=== PATIENT | male | born 1975 | race Caucasian/White ===

== ENCOUNTER 2018-11-02 00:57 | Outpatient (CLI) | payer OTHER, SELFPAY ==
--- NOTE | 2018-11-02 10:03 | DI.RAD_ITS ---
SYMPTOMS/DIAGNOSIS: CHEST PAIN, PAIN ON BREATHING, R07.1 PA AND LATERAL CHEST: Comparison 06/17/10. The heart is normal in size. The lungs are clear. The mediastinal structures and pleura appear intact. CONCLUSION: Normal chest.
== END 2018-11-02 01:17 ==
PROVIDERS: PCP Internal Medicine; Visit Provider Internal Medicine
DX: R07.1 Chest pain on breathing (principal)
CPT/HCPCS: 71046

== ENCOUNTER 2019-02-04 17:29 | Emergency (ER) | payer OTHER, SELFPAY ==
[2019-02-04 17:32] VITALS: BP 125/66; PULSE 84; RESP 18; TEMP 36.6; O2SAT 96
--- NOTE | 2019-02-04 17:55 | ED.GENADUL_ITS ---
Discharge Plan Disposition Patient Disposition: HOME Condition: Fair Discharge Details Chief Complaint: Sorethroat Clinical Impression: Acute pharyngitis Primary Care Provider: Susie Carnes ED Provider: Traci Lui Home Meds and New Rx's Prescriptions: New lidocaine HCl [Lidocaine Viscous] 2 % solution 15 ml MM BID-QID PRN (Reason: mouth pain) Qty: 100 RF: 0 penicillin V potassium 500 mg tablet 500 mg PO BID 10 Days Qty: 20 RF: 0 Continued naproxen 500 mg tablet 500 mg PO BID Qty: 60 RF: 2 cyclobenzaprine 10 mg tablet 10 mg PO HS Qty: 30 RF: 1 Discharge Instructions Instructions: Pharyngitis (ED) Additional Instructions: Encourage hydration. Tylenol and ibuprofen as needed for discomfort. You may use the viscous lidocaine as prescribed to help with your sore throat. Gargle and spit this out. Your rapid strep testing was negative today. Hold off on taking antibiotics unless her contacted by the department to begin this. If you develop fever/chills, inability stay hydrated, increased swelling, inability to open her mouth, rash or other new/worsening symptoms please seek care urgently once again Referrals: Susie Carnes MD [Primary Care Provider] - Medical Decision Making Patient is a 43-year-old male presenting today with chief complaint of 2 to 3 days of sore throat. States he has had intermittent fevers, has not measured this objectively. Denies any rash of shortness of breath, cough. States that while he has been able to tolerate fluids well, he has had diminished food intake secondary to increased pain with eating. Patient is concerned that he may have been exposed to Streptococcus pharyngitis. Denies any GI upset. On exam, he appears nontoxic. He does have bilateral erythema and white exudate. Findings are consistent with strep throat. He does have anterior lymphadenopathy. Denies any belly pain. No recent travel. No recent headaches. He and I discussed the usage of antibiotics the risks associated with the overuse and improper use. Rapid strep testing was negative. Discussed these findings with the patient. He is preparing for a trip in 2 days. Advised that we will call him with the pending lab results if they are positive. As he is about to leave the area, will send him home with a prescription for antibiotics to begin if instructed to do so from the emergency department. He will also be prescribed viscous lidocaine to help with symptomatic management. He will swish and spit this. Encourage hydration with water. Advised Tylenol and ibuprofen as needed for discomfort. Discussed [id number] home remedies that may be of benefit. He was given strict return precautions. Advise follow-up with primary care in 1 week if not improving. All his questions and concerns were addressed and he is in agreement this plan peer HPI General Mode of arrival: ambulatory . Date/Time Provider Initiated Documentation: 02/04/19 17:53 . Limitations to Documentation: no limitations . Information obtained by: patient and RN notes reviewed . History of Present Illness 43 year old M presents to the emergency department with the chief complaint of sore throat, described as moderate, with intensity rated at 4. Quality is described as burning, and is localized to the mouth. Patient reports no radiation. Patient started experiencing this day(s) (2) and it has been constant. No relieving factors improve symptom(s), Eating worsens symptoms . Patient notes fever/chills and loss of appetite (secondary to pain with eating); denies chest pain, cough, diaphoresis, nausea/vomiting, rash and shortness of breath. Patient did receive the following treatments prior to arrival, other (took dose of amoxicillin left over in cabinet) Related Data Home Medications Medication Instructions Recorded Confirmed cyclobenzaprine 10 mg tablet 10 mg PO HS #30 tab 11/01/18 02/04/19 naproxen 500 mg tablet 500 mg PO BID #60 tab 11/01/18 02/04/19 lidocaine HCl [Lidocaine Viscous] 15 ml MM BID-QID PRN #100 ml 02/04/19 penicillin V potassium 500 mg PO BID 10 Days #20 tab 02/04/19 Previous Rx's Medication Instructions Recorded cyclobenzaprine 10 mg tablet 10 mg PO HS #30 tab 11/01/18 naproxen 500 mg tablet 500 mg PO BID #60 tab 11/01/18 lidocaine HCl [Lidocaine Viscous] 15 ml MM BID-QID PRN #100 ml 02/04/19 penicillin V potassium 500 mg PO BID 10 Days #20 tab 02/04/19 Allergies Allergy/AdvReac Type Severity Reaction Status Date / Time No Known Allergies Allergy Unverified 02/04/19 17:35 General Stated Complaint: Sorethroat ANUPAMA: 4 Review of Systems Constitutional Reports as per HPI, Denies chills, Reports fatigue, Reports fever(s), Denies headache(s) and Reports poor appetite Eyes Reports as per HPI, Denies eye discharge and Denies irritation ENT Reports as per HPI, Denies ear discharge, Denies otalgia, Denies headache(s), Denies hoarseness, Denies lip swelling, Denies nasal congestion, Denies sinus pain, Denies sinus pressure, Reports sore throat, Denies throat swelling and Denies tongue swelling Cardiovascular Reports as per HPI, Denies chest pain and Denies dyspnea Respiratory Reports as per HPI and Denies dyspnea Gastrointestinal Reports as per HPI, Denies abdominal pain, Denies change in bowel habits, Denies nausea and Denies vomiting Integumentary/Breasts Reports as per HPI and Denies rash Neurologic Reports as per HPI and Denies headache(s) Endocrine Reports fatigue Allergic/Immunologic Denies lip swelling, Denies throat swelling and Denies tongue swelling PFSH Family History Mother No problems noted. Father Heart disease Brother No problems noted. Brother No problems noted. Grandfather No problems noted. Grandfather No problems noted. Grandmother Hyperlipidemia Grandmother Personal history of malignant neoplasm Stroke Social History Smoking/Tobacco Use Status: Current every day Alcohol Intake: current Alcohol Intake frequency: a few times a week Drug use: Occasionally Substance use type: marijuana Do you feel safe at home: Yes Do you feel safe in your relationship?: Yes Exam Const General: cooperative, healthy appearing, comfortable, no acute distress, well developed and well groomed Nutritional Appearance: average body habitus and well nourished Orientation: alert and awake [facility] Head: normal to inspection, normocephalic and atraumatic Ears: hearing grossly normal bilaterally, external ears normal and TM's normal bilaterally General nose exam: external nose normal and nares normal Face and sinus: normal facial exam, sinuses nontender and face symmetric Mouth: oral mucosae normal, lip normal, tongue normal, oropharynx normal, moist mucous membranes, no muffled voice, no trismus and No restricted motion Throat: uvula midline, abnormal tonsil bilaterally erythema, exudates and hypertrophy 1+ and no peritonsillar masses Eyes General: appearance normal, both eyes and all related structures Neck Neck: normal visual inspection, full ROM, no lymphadenopathy and no meningeal signs Resp Effort & Inspection: normal respiratory effort, able to speak in complete sentences and no respiratory distress Auscultation: clear to auscultation bilaterally, no rales, no rhonchi and no wheezes Cardio Rate: regular rate Rhythm: regular rhythm Heart Sounds: S1 normal and S2 normal Skin General skin exam: no rashes or lesions noted Neuro General: alert and awake Cognition: normal cognition Speech: speech normal Gait: normal gait Psych Appearance: grossly normal and well kempt Mental Status: mental status grossly normal Speech and Movement: speech and movement normal Course Vital Signs Temperature 36.6 C 02/04/19 17:32 Pulse 84 02/04/19 17:32 Respiratory Rate 18 02/04/19 17:32 Blood Pressure 125/66 02/04/19 17:32 Pulse Oximetry 96 02/04/19 17:32 Temperature 36.6 C 02/04/19 17:32 Temperature Source Skin 02/04/19 17:32 Pulse 84 02/04/19 17:32 Respiratory Rate 18 02/04/19 17:32 Respiratory Effort Non-Labored 02/04/19 17:36 Blood Pressure 125/66 02/04/19 17:32 Blood Pressure Position Sitting 02/04/19 17:32 Pulse Oximetry 96 02/04/19 17:32 Oxygen Delivery Method Room Air 02/04/19 17:32 Oxygen Flow Rate 0 02/04/19 17:32 Pain Level 4 02/04/19 17:32 Lab/Test Results Lab/Test Results: 02/04/19 17:35 Tonsil - Not Specified Streptococcus Screen ([facility]) - Pending POC Strep Test-[facility](Rapid) Start: 02/04/19 17:42 Freq: Status: Active Protocol: Document 02/04/19 17:44 AB (Rec: 02/04/19 17:44 AB [id number]) Strep test-[facility](Rapid)-POC POC-Strep test-[facility] (Rapid) Negative POC-Strep test-[facility] (Rapid) Negative
== END 2019-02-04 18:25 | disposition home or self-care (01) ==
PROVIDERS: Emergency Provider Physician Assistant; PCP Internal Medicine
DX: J02.9 Acute pharyngitis, unspecified (principal)
CPT/HCPCS: 87880; 99283; 87081

== ENCOUNTER 2020-03-28 18:44 | Emergency (ER) | payer OTHER, SELFPAY ==
[2020-03-28] VITALS (18 sets, daily range): BP systolic 110–169; BP diastolic 72–88; PULSE 52–109; RESP 9–25; TEMP 36.7; O2SAT 95–99
--- NOTE | 2020-03-28 18:45 | RT.EKG_ITS ---
APPROVED REPORT Exam: Resting ECG Patient Location: E HR:107 bpm ECG Measurements Heart Rate 107 AXIS IL 141 P 80 QRSd 133 QRS 73 QT 328 T 81 QTc 437 Conclusion EKG 18: 50 Rate 107, intervals normal aside for QRS prolongation of 133 likely secondary to right bundle branch block. Otherwise sinus tachycardia. No evidence of STEMI. No clear evidence of Brugada syndrome, d elta wave, epsilon wave.
--- NOTE | 2020-03-28 19:00 | DI.CT_ITS ---
EXAM: CT THORAX CTA CLINICAL HISTORY: left CP, with arm tingling, r/o dissection/PE. TECHNIQUE: Imaging Protocol: Axial CT angiography was performed with multi-slice acquisition and mu lti-planar and/or 3D reconstructions. CONTRAST MATERIAL: Intravenous: Omnipaque 350 Contrast volume:100 mL COMPARISON: CR XR CHEST 2V PA LATERAL from 11/02/2018 FINDINGS: Pulmonary Arteries: There is inadequate opacification of the pulmonary arteries for evaluation of an embolus. Tracheobronchial tree: Patent where visualized. Mediastinum and Becky: No dominant adenopathy or fluid collection. Small hiatal hernia. Pulmonary parenchyma: No consolidation or dominant measurable mass. Mild pulmonary emphysema. Pleura: No effusion or pneumothorax. Heart: The heart is not dilated. No coronary artery calcifications are seen. No pericardial effusion. Aorta: Thoracic aorta non-dilated. No evidence of dissection. Upper abdomen: Unremarkable. Bones: Mild degenerative changes are present. There is a mild right convex scoliosis of the thoracic spine. IMPRESSION: 1. Suboptimal examination for pulmonary embolism evaluation due to poor opacification of the pulmonar y arteries. 2. No evidence of an aortic dissection or aneurysm. 3. No acute pulmonary process. RADIATION DOSE DELIVERED: 393.94mGy.cm Total DLP DATA REPOSITORY: All CT scans at this facility are submitted to the National Radiology Data Registry (NRDR) Dose Index Registry (DIR) with the [employer] (ACR). RADIATION OPTIMIZATION: All CT scans at this facility use at least one of these dose optimization te chniques: automated exposure control; mA and/or kV adjustment per patient size (includes targeted exa ms where dose is matched to clinical indication); or iterative reconstruction.
[2020-03-28 19:17] LABS: Abs Immature Grans 0.01 10^3/uL (0.0-0.06); Absolute Basophil Count 0.02 10^3/uL (0.0-0.2); Absolute Eosinophil Count 0.16 10^3/uL (0.0-0.7); Absolute Lymphocyte Count 2.13 10^3/uL (1.2-3.4); Absolute Monocyte Count 0.38 10^3/uL (0.1-0.8); Absolute Neutrophil Count 3.65 10^3/uL (1.2-6.7); Basophils % 0.3; Eosinophils % 2.5; HCT 42.1 % (40.0-50.0); HGB 14.3 g/dL (13.5-17.5); Immature Grans % 0.2; Lymphocytes % 33.5; MCH 32.1 pg (27.0-33.0); MCV 94.4 fL (80-95); MPV 10.1 fL (8.0-11.0); Neutrophils % 57.5; Nucleated RBC 0 %; Platelet Count 158 10^3/uL (130-400); RBC 4.46 10^6/uL (4.36-5.78); RDW-SD 41.9 fL; WBC 6.35 10^3/uL (4.4-10.8)
--- NOTE | 2020-03-28 19:18 | W.ED.GENAD ---
Discharge Plan Disposition Patient Disposition: HOME Condition: Stable Discharge Details Chief Complaint: Chest Pain Clinical Impression: Chest pain, Hypokalemia Primary Care Provider: Loida Calle ED Provider: Mono Kwok Home Meds and New Rx's Prescriptions: Continued cyclobenzaprine 10 mg tablet 10 mg PO HS PRNRF: 0 naproxen 500 mg tablet 500 mg PO BID PRNRF: 0 Discharge Instructions Instructions: Chest Pain (ED), Hypokalemia (ED) Additional Instructions: your lab work and cat scan did not show a cause for your pain follow up with your primary care provider and discuss having a stress test if you feel more ill, have worsening pain or difficulty breathing return to the emergency department Medical Decision Making <Herman England, - Last Filed: 03/28/20 19:30> 44-year-old male with no significant past medical history presents today for evaluation of chest pain. Patient states that over the last few weeks he has had intermittent chest pain which she describes as a left chest tightness sensation. He will come and go, it is unrelated to exertion or movement. It goes away on its own with time. Sometimes it gets better without intervention, sometimes it gets better with rest. Patient states tonight though that it came back just while sitting, it was notably worse than before. He describes it as a heavy tight weight on his left chest feeling like someone is pushing with significant force in an inward direction. He also admits to palpitations. He denies any significant pleuritic chest pain, he does admit to radiation of the pain to his left neck and tingling in his hand and arm. He denies any tearing or ripping sensation. He denies history of cardiac disease. He did smoke in the past but quit over a year ago. His father did have cardiac disease but of a motor vehicle accident in his 50s. Patient denies any IV or illicit drug use. He denies any syncope. No other complaints at this time. No other modifying factors. Physical exam demonstrates no significant abnormalities, radial pulses equal, no reproducible chest pain. The patient is mildly tachycardic. EKG demonstrates evidence of a right bundle branch block, does not appear to resemble Brugada syndrome, no delta wave. This is atypical. Differential is broad but includes electrolyte abnormality, PE dissection. We will monitor closely, get radiographic imaging of the chest to rule these out, troponin, rehydrate and reassess. Patient will be signed out to my colleague Dr. Kwok for follow-up on labs and imaging. EKG 18: 50 Rate 107, intervals normal aside for QRS prolongation of 133 likely secondary to right bundle branch block. Otherwise sinus tachycardia. No evidence of STEMI. No clear evidence of Brugada syndrome, delta wave, epsilon wave. <Mono Kwok MD - Last Filed: 03/28/20 22:42> pt's cta shows no acute pathology, hd stable and has no complaints has reproducible pain in left upper chest suspect he has chest wall pain but will monitor and obtain delta troponin and ecg. His heart score is 2 so if negative troponin and unchanged ecg feel he could be d/c'd with f/u with pcp pt asymptomatic and stable no complaints. Second troponin negative, will have him f/u for repeat K and possible stress test. Return precautions given Imaging Data Radiologic Study: Attestation: I personally reviewed and interpreted this imaging study as follows: Imaging: CT Scan Radiologist's impression: IMPRESSION: 1. No evidence for aortic aneurysm or dissection. 2. No gross evidence for pulmonary embolism however the pulmonary arteries are not optimally opacified. 3. The lungs are clear ECG Data Attestation: I personally reviewed and interpreted this ECG (s) as follows: Prior ECG tracings: available for review Interpretation: sinus rhythm, rate of 53, pr 171 HPI <Herman England DO - Last Filed: 03/28/20 19:30> General Date/Time Provider Initiated Documentation: 03/28/20 18:51. HPI Narrative: 44-year-old male with no significant past medical history presents today for evaluation of chest pain. Patient states that over the last few weeks he has had intermittent chest pain which she describes as a left chest tightness sensation. He will come and go, it is unrelated to exertion or movement. It goes away on its own with time. Sometimes it gets better without intervention, sometimes it gets better with rest. Patient states tonight though that it came back just while sitting, it was notably worse than before. He describes it as a heavy tight weight on his left chest feeling like someone is pushing with significant force in an inward direction. He also admits to palpitations. He denies any significant pleuritic chest pain, he does admit to radiation of the pain to his left neck and tingling in his hand and arm. He denies any tearing or ripping sensation. He denies history of cardiac disease. He did smoke in the past but quit over a year ago. His father did have cardiac disease but of a motor vehicle accident in his 50s. Patient denies any IV or illicit drug use. He denies any syncope. No other complaints at this time. No other modifying factors. Related Data Home Medications Medication Instructions Recorded Confirmed cyclobenzaprine 10 mg tablet 10 mg PO HS PRN tab 02/28/19 03/28/20 naproxen 500 mg tablet 500 mg PO BID PRN tab 02/28/19 03/28/20 Allergies Allergy/AdvReac Type Severity Reaction Status Date / Time No Known Allergies Allergy Unverified 03/28/20 18:56 General Stated Complaint: Chest Pain ANUPAMA: 2 Review of Systems <Herman England DO - Last Filed: 03/28/20 19:30> All systems reviewed & are unremarkable except as noted in HPI and below PFSH <Herman England DO - Last Filed: 03/28/20 19:30> Family History Mother No problems noted. Father , car accident at age 54. Heart disease Brother No problems noted. Brother No problems noted. Grandfather No problems noted. Grandfather No problems noted. Grandmother Hyperlipidemia Grandmother Personal history of malignant neoplasm ?COLON Stroke Social History Smoking/Tobacco Use Status: Former Tobacco Use Alcohol Intake: current Alcohol Intake frequency: a few times a week Drug use: Occasionally Substance use type: marijuana Do you feel safe at home: Yes Do you feel safe in your relationship?: Yes Exam <Herman England DO - Last Filed: 03/28/20 19:30> Narrative Exam Narrative: 1.Const: Well-nourished, Well-developed, appearing stated age 2.Eyes: PERRL, no conjunctival injection, and symmetrical lids. 3.ENT: Atraumatic external nose and ears. Moist MM. Neck: Symmetric, trachea midline, No thyromegaly. 4.CVS: +S1/S2, No murmurs or gallops. Peripheral pulses 2+ and equal in all extremities. Brisk capillary refill in all extremities. Radial pulses +2 bilaterally. No reproducible chest pain on exam. 5.RESP: Unlabored respiratory effort. Clear to auscultation bilaterally. No wheezes rales or rhonchi 6.GI: Soft, Nontender/Nondistended, No hepatosplenomegaly. No guarding or rebound. 7.MSK: Normocephalic/Atraumatic, Extremities w/o deformity or ttp No cyanosis or clubbing, Normal movement of all extremities 8.Skin: Warm, Dry. No rashes or lesions. 9.Neuro: optical laboratory technician II-XII grossly intact. Sensation grossly intact, no focal neurologic deficits. 10.Psych: (AAO) x3. Appropriate mood and affect Course <Herman England DO - Last Filed: 03/28/20 19:30> Vital Signs Vital signs: Vital Signs Temperature 36.7 C 03/28/20 18:47 Pulse 109 H 03/28/20 18:47 Respiratory Rate 22 03/28/20 18:47 Blood Pressure 169/88 H 03/28/20 18:47 Pulse Oximetry 99 03/28/20 18:47 Temperature 36.7 C 03/28/20 18:47 Temperature Source Skin 03/28/20 18:47 Pulse 109 H 03/28/20 18:47 Respiratory Rate 22 03/28/20 18:47 Respiratory Effort 03/28/20 18:53 Blood Pressure 169/88 H 03/28/20 18:47 Blood Pressure Position Supine 03/28/20 18:47 Pulse Oximetry 99 03/28/20 18:47 Oxygen Delivery Method Room Air 03/28/20 18:47 Oxygen Flow Rate 0 03/28/20 18:47 Pain Level 4 03/28/20 18:47 Sign Out <Herman England DO - Last Filed: 03/28/20 19:30> Sign Out Data: Sign Out Comment: Palpitations, chest pain, pending imaging. Notable hypokalemia being corrected Last updated by Herman England DO at 03/28/20 19:40
[2020-03-28] MEDS: Normal Saline 1,000 ML 1000 ML IV (19:24)
[2020-03-28 19:32] LABS: PTT Activated 24.1 sec (21.0-31.4); Prothrombin Time 10.3 sec (9.3-11.0)
[2020-03-28 19:36] LABS: ALT 29 U/L (16-63); AST 24 U/L (15-37); Albumin 3.7 g/dL (3.4-5.0); Alkaline Phosphatase 70 U/L (46-116); Anion Gap 10.1 mmol/L (3-11); BUN 13 mg/dL (7-18); Bilirubin, Total 0.5 mg/dL (0.2-1.0); CO2 26.9 mmol/L (21.0-32.0); Calcium 8.5 mg/dL (8.5-10.1); Chloride 96 mmol/L (98-107); Estimated GFR 59.43 (mL/min/1.73m2); Glucose 357 mg/dL (74-106); Sodium 133 mmol/L (136-145)
[2020-03-28 19:37] LABS: Potassium 2.8 mmol/L (3.5-5.1); Troponin I < 0.05 ng/mL (<0.06)
[2020-03-28] MEDS: Normal Saline Flush 10 ML SYR IVP (19:52)
[2020-03-28] MEDS: Normal Saline - Diluent 50 ML VIAL IV (19:52)
[2020-03-28] MEDS: Omnipaque 350 MG/ML 100 ML BTL IJ (19:53)
--- NOTE | 2020-03-28 20:14 | DI.VRAD_ITS ---
PROCEDURE INFORMATION: Exam: CT Angiography Chest With Contrast Exam date and time: 03/28/2020 7:58 PM Age: 44 years old Clinical indication: Left-sided chest pain; Patient HX: Left chest pain with left arm tingling, R/O dissection/pe TECHNIQUE: Imaging protocol: Computed tomographic angiography of the chest with intravenous contrast. 3D rendering (Not supervised by radiologist): MIP and/or 3D reconstructed images were created by the technologist. Radiation optimization: All CT scans at this facility use at least one of these dose optimization techniques: automated exposure control; mA and/or kV adjustment per patient size (includes targeted exams where dose is matched to clinical indication); or iterative reconstruction. Contrast material: [id number]; Contrast volume: 100 ml; Contrast route: INTRAVENOUS (IV); COMPARISON: CR XR CHEST 2V PA LATERAL 11/02/2018 10:14 AM FINDINGS: There are degenerative changes of the spine. There is mild scoliosis convex to the right. The lungs are clear of infiltrate. There is no pleural effusion. There is no pneumothorax. There are no suspicious pulmonary nodules. There is some minimal scarring within the lung apices. Small emphysematous blebs are seen within the lung apices. The central airways are normal in caliber. The thyroid gland is unremarkable. There is no axillary adenopathy. There is no mediastinal adenopathy. There is no hilar adenopathy. There is poor opacification of the pulmonary arteries. No gross evidence for pulmonary embolism is seen. The aorta is normal in caliber with no evidence for aneurysm or dissection. The heart is normal in size. There is a small hiatal hernia. IMPRESSION: 1. No evidence for aortic aneurysm or dissection. 2. No gross evidence for pulmonary embolism however the pulmonary arteries are not optimally opacified. 3. The lungs are clear. Dictated and Authenticated by: Quincy Sommers MD. Ordering:LANA Sutton MD
[2020-03-28] MEDS: POTASSIUM CHLORIDE 20 MEQ/100 ML BAG 50 MEQ IVPB (20:18)
[2020-03-28] MEDS: Potassium Chloride 20 MEQ TABCR 40 MEQ PO (20:19)
[2020-03-28 21:27] LABS: Magnesium 1.7 mg/dL (1.8-2.4)
--- NOTE | 2020-03-28 22:00 | RT.EKG_ITS ---
APPROVED REPORT Exam: Resting ECG Patient Location: E HR:53 bpm ECG Measurements Heart Rate 53 AXIS FL 171 P 51 QRSd 120 QRS 6 QT 397 T 32 QTc 374 Conclusion Sinus bradycardia...rate< 60 Nonspecific intraventricular conduction delay...QRSd >115mS, not LBBB/RBBB ST elev, probable normal early repol pattern...ST elevation, age<55
[2020-03-28 22:28] LABS: Troponin I < 0.05 ng/mL (<0.06)
--- NOTE | 2020-03-28 22:40 | NUR.NOTE ---
Addendum entered by Kaitlynn Foster 03/28/20 23:48: referal faxed to pcp for follow up /chest pain 03/28/20 Original Note: Nursing Note:fabien gonzalez pcp for follow up chest pain 03/28/20
== END 2020-03-28 22:45 | disposition home or self-care (01) ==
PROVIDERS: Student in an Organized Health Care Education/Training Program; Emergency Provider Emergency Medicine; PCP Nurse Practitioner
DX: E87.6 Hypokalemia (principal); R07.81 Pleurodynia; R00.2 Palpitations
CPT/HCPCS: 71275; 80053; 93005; 96361; 96365; 96366; 99285; 83735; 84484; 85025; 85610; 85730; 93010; J3480; J3490

== ENCOUNTER 2020-04-05 22:04 | Outpatient (REF) | payer OTHER, SELFPAY ==
[2020-04-05 21:32] LABS: Calculated LDL 113 mg/dL (<100); Cholesterol 203 mg/dL (<200); HDL Cholesterol 71 mg/dL (40-60); Potassium 4.1 mmol/L (3.5-5.1); Triglyceride 97 mg/dL (<150)
[2020-04-05 21:44] LABS: Hemoglobin A1C 5.1 % (<5.7)
== END 2020-04-05 22:24 ==
LOC: LBN 22:04
PROVIDERS: PCP Nurse Practitioner; Visit Provider Nurse Practitioner
DX: E87.6 Hypokalemia (principal); R07.9 Chest pain, unspecified; Z13.1 Encounter for screening for diabetes mellitus
CPT/HCPCS: 80061; 83036; 84132

== ENCOUNTER 2020-04-17 00:10 | Outpatient (CLI) | payer OTHER, SELFPAY ==
--- NOTE | 2020-04-17 09:00 | ETT_ITS ---
APPROVED REPORT Exam: Exercise Treadmill Patient Location: Out-Patient Room/Bed: Stress Nurse: Crista Noe RN BMI: 21.18 Baseline Rhythm: Sinus Rhythm Indications: Patient presented to the ED on 04/05/2020 with chest pain; potassium level at this time w as 2.8. Patient reports midsternal chest pressure, ???squeezing like in a vice??? and left shoulder p ain when raising arm. He has not had another episode since his ED visit. Medical History Medical History: No medical history per patient. Cardiac Medications: No cardiac medications per patient. Allergies: No known drug allergies Cardiac Risk Factors: FHX of CAD Previous Cardiac Procedures: None Pretest Chest Pain Characteristics: None per patient report Exercise History: Physically active Physical Disabilities: None Lung Sounds: Clear to auscultation Heart Sounds: Regular Stress Test Details Test: Exercise stress testing was performed using a Asa protocol. Rest Stress HR Resting HR Supine: 63 bpm Max Heart Rate (APMHR): 174 bpm Resting HR Standin bpm Target HR (85% APMHR): 147 bpm Max HR Achieved: 158 bpm % of APMHR: 90 HR response to stress: Normal HR response to stress BP Resting BP Supine: 126/80 mmHg Resting BP Standin/78 mmHg Max BP: 166/64 mmHg BP response to stress: Normal blood pressure response to stress. ECG Resting ECG: Sinus Rhythm, Early Repolorization, St Segment Elevation in Leads V2 and V3 at baseline . Clinical Reason for Termination: Fatigue Stress Symptoms: None reported per patient. Exercise duration: 13 min10 sec Highest Stage Reached: Stage 5: 5.0 mph at 18% grade. Exercise capacity: 14.28 METs Functional Capacity: Above average capacity Stress ECG Conclusion 1. Resting electrocardiogram showed an incomplete right bundle branch block 2. Patient exercised on the Asa protocol completed a workload of 14.28 METS. 3. Normal heart rate and blood pressure response to exercise 4. No symptoms to suggest angina. Electrocardiographically test was negative for myocardial ischemia 5. Mendez treadmill score is 13 which is low risk Stress Test Summary STAGE Time (mins) Speed (mph) Grade (%) HR BP SYMPTOMS METS Supine 63 126/80 Standing 79 120/78 1 3 1.7 10 88 124/76 4.6 2 6 2.5 12 101 130/72 7 3 9 3.4 14 106 144/62 10.2 4 12 4.2 16 132 152/62 12.9 1 min recovery 136 166/64 3 min recovery 71 158/64 6 min recovery 93 132/68
== END 2020-04-17 00:30 ==
PROVIDERS: PCP Nurse Practitioner; Visit Provider Nurse Practitioner
DX: R07.9 Chest pain, unspecified (principal); M25.512 Pain in left shoulder; Z82.49 Family history of ischemic heart disease and other diseases of the circulatory system; I45.19 Other right bundle-branch block
CPT/HCPCS: 93017